=== PATIENT | female | born 1980 | race Caucasian/White ===

== ENCOUNTER 2016-06-24 14:55 | Inpatient (IN) | payer BC ==
[2016-06-24] VITALS (18 sets, daily range): BP systolic 114–150; BP diastolic 74–97; PULSE 83–113; TEMP 98.1
[~2016-06-24] VITALS: Ht 160 cm; Wt 114.5 kg
[2016-06-24 15:33] LABS: BASO % 0.3 % (0.0-2.0); EOS % 0.1 % (0-4.0); GRAN # 9.1 (1.4-6.5); GRAN % 83.2 % (42.2-75.2); HEMATOCRIT 38.4 % (37.0-47.0); HEMOGLOBIN 12.6 g/dl (12.5-16.0); LYMPH # 1.1 (1.2-3.4); LYMPH % 10.1 % (20.0-51.0); MEAN CELL VOLUME 85 fl (80.0-100.0); MEAN CORPUSCULAR HEMOGLOBIN 28 pg (27.0-31.0); MEAN CORPUSCULAR HGB CONC 33 g/dl (33.0-37.0); MEAN PLATELET VOLUME 10.6 fl (7.4-10.4); MONO # 0.6 (0.1-0.6); MONO % 5.1 % (1.7-9.3); PLATELET COUNT 240 K/mm3 (130-400); RED BLOOD COUNT 4.51 M/mm3 (4.10-5.30); REDCELL DISTRIBUTION WIDTH-CV 13.2 % (11.5-14.5); WHITE BLOOD COUNT 10.9 K/mm3 (4.8-10.8)
[2016-06-25 05:29] VITALS: BP 112/64; PULSE 80; TEMP 97.8
[2016-06-25] MEDS ORDERED: IBU800 M1 PO (08:33)
[2016-06-25 08:55] VITALS: BP 123/96; PULSE 83; TEMP 97.6
[2016-06-25 15:14] VITALS: BP 121/80; PULSE 76; TEMP 97.4
[2016-06-25 20:35] VITALS: BP 113/64; PULSE 76; TEMP 98.1
[2016-06-26 08:10] VITALS: BP 128/95; PULSE 80; TEMP 98
== END 2016-06-26 10:50 | disposition home or self-care (01) | DRG 775 ==
LOC: LDRO 14:55 → LDR 15:09 → OB 21:00
PROVIDERS: Obstetrics & Gynecology
PROC: 10E0XZZ Delivery of Products of Conception, External Approach (ICD-10-PCS; principal; 2016-06-24)
PROC: 0UQMXZZ Repair Vulva, External Approach (ICD-10-PCS; 2016-06-24)
DX: O70.0 First degree perineal laceration during delivery (principal); O09.523 Supervision of elderly multigravida, third trimester; Z3A.37 37 weeks gestation of pregnancy; Z37.0 Single live birth
CPT/HCPCS: J2590; J2795; J7120